=== PATIENT | male | born 1940 | race Caucasian/White ===

== ENCOUNTER → 2016-11-15 | Outpatient (CLI) | payer MEDICARE, OTHER | LOC: RAD 06:37 | PROVIDERS: ATTEND Nurse Practitioner | DX: Z12.2 Encounter for screening for malignant neoplasm of respiratory organs (principal); J44.9 Chronic obstructive pulmonary disease, unspecified; Z87.891 Personal history of nicotine dependence; R03.0 Elevated blood-pressure reading, without diagnosis of hypertension; R06.02 Shortness of breath; R06.09 Other forms of dyspnea | CPT/HCPCS: G0297 ==

== ENCOUNTER → 2017-12-10 | Outpatient (CLI) | payer MEDICARE, OTHER ==
--- NOTE | 2017-12-12 07:55 | XCELERA REPORT ---
[address] [address] Lower Extremity Venous Evaluation Name: JANAK RODRIGUEZ Age: 77 yrs Gender: Male : 1940 Patient Status: Outpatient Patient Location: Study Date: 12/10/2017 01:26 PM Procedure: Color flow and duplex imaging bilaterally of the veins of the lower extremities as well as the Common Femoral veins. Reason For Study: BILATERAL LEG PAIN Ordering Physician: FAY GILES Performed By: Sulema Mary Right Sided Venous Evaluation Normal vessel filling wall to wall, compression and augmentation as well as Colour flow down to the infrageniculate veins. Left Sided Venous Evaluation Normal vessel filling wall to wall, compression and augmentation as well as Colour flow down to the infrageniculate veins. Interpretation Summary No duplex evidence of DVT or obstruction in the bilateral lower extremities. : FAY GILES > Jaiden Parra
--- NOTE | 2017-12-12 07:58 | XCELERA REPORT ---
[address] [address] Tel: [phone] Fax: [phone] Lower Extremity Arterial Evaluation Name: JANAK RODRIGUEZ Age: 77 yrs Gender: Male : 1940 Patient Status: Outpatient Patient Location: [facility] Study Date: 12/10/2017 02:10 PM Procedure: Ankle brachial indicies performed. Reason For Study: PVD Ordering Physician: FAY GILES Performed By: Sulema Mary Right Side Arterial Evaluation ROBIN :0.87. Multiphasic waveform. Left Side Arterial Evaluation ROBIN :0.67. Multiphasic waveform. Interpretation Summary Normal ROBIN on right, moderate disease predicted on left. Further elucidation might be provided on duplex imaging, or other studies, if needed. : FAY GILES > Jaiden Parra
== END ==
LOC: SP 12:28
PROVIDERS: ATTEND Nurse Practitioner
DX: I73.9 Peripheral vascular disease, unspecified (principal); R20.8 Other disturbances of skin sensation; M79.604 Pain in right leg; M79.605 Pain in left leg; M79.671 Pain in right foot; M79.672 Pain in left foot
CPT/HCPCS: 93922; 93970

== ENCOUNTER 2017-12-26 10:16 | Emergency (ER) | payer MEDICARE, OTHER ==
[2017-12-26] MEDS ORDERED: ASPIRIN 81 MG TABLET, CHEWABLE PO ONE (10:28)
[2017-12-26] MEDS ORDERED: ADENOSINE INJ/PF 6 MG/2 ML SDV IV ONE ×2 (10:42)
[2017-12-26 10:47] LABS: ABSOLUTE BASOPHILS # (AUTO) 0.1 10^3/uL (0.0-0.2); ABSOLUTE EOSINOPHILS # (AUTO) 0.2 10^3/uL (0.0-0.6); ABSOLUTE LYMPHOCYTES (AUTO) 1.8 10^3/uL (0.5-4.7); ABSOLUTE MONOCYTES (AUTO) 0.4 10^3/uL (0.1-1.4); ABSOLUTE NEUT (AUTO) 3.8 10^3/uL (1.7-8.2); BASOPHILS % (AUTO) 0.8 % (0-2); EOSINOPHILS % (AUTO) 3.5 % (0-6); HEMATOCRIT 46.6 % (37.9-51.0); HEMOGLOBIN 15.8 g/dL (13.5-17.0); MEAN CORPUSCULAR HEMOGLOBIN 30.9 pg (27.0-33.4); MEAN CORPUSCULAR HGB CONC 33.9 g/dL (32.0-36.0); MEAN CORPUSCULAR VOLUME 91 fl (80-97); MONOCYTES % (AUTO) 7.1 % (3-13); PLATELET COUNT 108 10^3/uL (150-450); RED CELL DISTRIBUTION WIDTH 13.7 % (11.5-14.0); SEGMENTED NEUTROPHILS % (AUTO) 60.6 % (42-78); TOTAL CELLS COUNTED % (AUTO) 100 %; WHITE BLOOD COUNT 6.3 10^3/uL (4.0-10.5)
[2017-12-26] MEDS ORDERED: NORMAL SALINE 1000 ML 1,000 ML IV ONE (10:54)
[2017-12-26 11:04] LABS: ALANINE AMINOTRANSFERASE 34 U/L (21-72); ALBUMIN 4.1 g/dL (3.5-5.0); ALKALINE PHOSPHATASE 45 U/L (38-126); ANION GAP 11 (5-19); ASPARTATE AMINO TRANSFERASE 23 U/L (17-59); BILIRUBIN,DIRECT 0.3 mg/dL (0.0-0.4); BILIRUBIN,TOTAL 0.4 mg/dL (0.2-1.3); BLOOD UREA NITROGEN 12 mg/dL (7-20); CALCIUM 9.5 mg/dL (8.4-10.2); CARBON DIOXIDE 27 mmol/L (22-30); CHLORIDE 110 mmol/L (98-107); CREATINE KINASE 56 U/L (55-170); GLUCOSE 97 mg/dL (75-110); POTASSIUM 4.6 mmol/L (3.6-5.0); SODIUM 147.6 mmol/L (137-145); TOTAL PROTEIN 6.3 g/dL (6.3-8.2)
[2017-12-26 11:15] LABS: CREATINE KINASE MB 1.48 ng/mL (<4.55); TROPONIN I < 0.012 ng/mL
[2017-12-26 11:21] LABS: FREE T4 (FREE THYROXINE) 1.01 ng/dL (0.78-2.19)
--- NOTE | 2017-12-26 11:29 | RADIOLOGY REPORT (SQ) ---
EXAM DESCRIPTION: CHEST SINGLE VIEW COMPLETED DATE/TIME: 12/26/2017 11:08 am REASON FOR STUDY: sob COMPARISON: April 2013 EXAM PARAMETERS: NUMBER OF VIEWS: One view. TECHNIQUE: Single frontal radiographic view of the chest acquired. RADIATION DOSE: NA LIMITATIONS: None. FINDINGS: LUNGS AND PLEURA: No opacities, masses or pneumothorax. No pleural effusion. MEDIASTINUM AND HILAR STRUCTURES: No masses. Contour normal. HEART AND VASCULAR STRUCTURES: Heart normal in size. Normal vasculature. BONES: No acute findings. HARDWARE: None in the chest. OTHER: No other significant finding. IMPRESSION: NO ACUTE RADIOGRAPHIC FINDING IN THE CHEST. TECHNICAL DOCUMENTATION: JOB ID: [id number] [employer]- All Rights Reserved Reading location - IP/workstation name: [email or web address]
[2017-12-26 11:34] LABS: THYROID STIMULATING HORMONE 1.08 uIU/mL (0.47-4.68)
--- NOTE | 2017-12-26 12:41 | RADIOLOGY REPORT (SQ) ---
EXAM DESCRIPTION: CTA CHEST COMPLETED DATE/TIME: 12/26/2017 12:13 pm REASON FOR STUDY: hx of AAA tachy hypotension COMPARISON: None. TECHNIQUE: CT scan of the chest performed using helical scanning technique with dynamic intravenous contrast injection. Images reviewed with lung, soft tissue and bone windows. Reconstructed coronal and sagittal MPR images reviewed. Additional 3 dimensional post-processing performed to develop Maximal Intensity Projection images (NM P). All images stored on PACS. All CT scanners at this facility use dose modulation, iterative reconstruction, and/or weight based d osing when appropriate to reduce radiation dose to as low as reasonably achievable (ALARA). [facility]: Dose Right [facility]: CareDose [facility]: Dose Right [facility]: Teradose 4D [facility]: [employer] CONTRAST TYPE AND DOSE: 100 mL Isovue 370 Contrast bolus optimized for the pulmonary arteries. Not diagnostic for the aorta. RENAL FUNCTION: Creatinine 0.88 RADIATION DOSE: . LIMITATIONS: None. FINDINGS: LUNGS AND PLEURA: No masses, infiltrates, pneumothorax. No pleural effusions, calcificati ons. Emphysematous changes are identified. AORTA AND GREAT VESSELS: No aneurysm. No dissection. There is diffuse ectasia of the thoracic aorta . HEART: No pericardial effusion. No significant coronary artery calcifications. PULMONARY ARTERIES: No emboli visualized in the main pulmonary arteries or the segmental branches. HILAR AND MEDIASTINAL STRUCTURES: No identified masses or abnormal nodes. HARDWARE: None in the chest. UPPER ABDOMEN: See results under abdominal CT scan THYROID AND OTHER SOFT TISSUES: No masses. No adenopathy. BONES: No acute or significant finding. 3D MIPS: Confirm above findings. OTHER: No other significant finding. IMPRESSION: No evidence for a thoracic aortic aneurysm or dissection. There is diffuse ectasia of t he thoracic aorta. No acute consolidations or pleural effusions are identified. Other findings as n oted above. COMMENT: Quality ID # [id number]: Final reports with documentation of one or more dose reduction techniques (e.g., Automated exposure control, adjustment of the mA and/or kV according to patient size, use of iterative reconstruction technique) TECHNICAL DOCUMENTATION: JOB ID: [id number] [employer]- All Rights Reserved Reading location - IP/workstation name: [email or web address]
--- NOTE | 2017-12-26 12:51 | RADIOLOGY REPORT (SQ) ---
EXAM DESCRIPTION: CTA ABDOMEN/PELVIS W WO COMPLETED DATE/TIME: 12/26/2017 12:13 pm REASON FOR STUDY: hx of AAA tachy hypotension COMPARISON: None. TECHNIQUE: CT scan of the abdominal aorta extending to the iliac bifurcation performed with intraven ous contrast using helical scanning technique with dynamic intravenous contrast injection. Images rev iewed with lung, soft tissue, and bone windows. Reconstructed coronal and sagittal MPR images reviewe d. All images stored on PACS. Advanced 3D imaging as volume rendering, MIPS, SSD performed? yes All CT scanners at this facility use dose modulation, iterative reconstruction, and/or weight based d osing when appropriate to reduce radiation dose to as low as reasonably achievable (ALARA). [facility]: Dose Right [facility]: CareDose [facility]: Dose Right [facility]: Teradose 4D [facility]: [employer] CONTRAST TYPE AND DOSE: contrast/concentration: Isovue 370.00 mg/ml; Total Contrast Delivered: 100.0 ml; Total Saline Delivered: 90.0 ml RENAL FUNCTION: Creatinine 0.88 LIMITATIONS: None. FINDINGS: POST-CONTRAST IMAGING: AORTA AND VESSELS: An infrarenal abdominal aortic aneurysm is identified measuring 3.1 cm in diameter . There is diffuse ectasia of the remaining abdominal aorta with vascular calcifications. A small c omponent of intraluminal clot is identified. 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 There is ectasia of the right common iliac artery. Vascular calci fications are identified at the origin of the superior mesenteric artery and left renal artery. LUNG BASES: See results under chest CT scan LIVER: Normal size. No masses or dilated ducts. Small hepatic cyst is identified. SPLEEN: Normal size. No focal lesions. PANCREAS: No masses. No significant calcifications. No adjacent inflammation or peripancreatic fluid collections. Pancreatic duct not dilated. GALLBLADDER: No identified stones by CT criteria. No inflammatory changes to suggest cholecystitis. ADRENAL GLANDS: A small 1.4 cm in diameter left adrenal mass is identified. RIGHT KIDNEY AND URETER: No mass, calculi or urinary tract obstruction. LEFT KIDNEY AND URETER: No mass, calculi or urinary tract obstruction. RETROPERITONEUM: No retroperitoneal adenopathy, hemorrhage or masses. BOWEL AND PERITONEAL CAVITY: No masses or inflammatory changes. No free fluid or peritoneal masses. APPENDIX: Normal. ABDOMINAL WALL: No masses. Left inguinal hernia is identified containing fat BONY STRUCTURES: Degenerative changes are identified in the lumbar spine. 3-D IMAGING: Confirms the above findings. OTHER: There is prominence of the prostate gland with a prostatic impression on the bladder base P IMPRESSION: A small infrarenal abdominal aortic aneurysm is identified as noted above measuring 3.1 cm in diameters. 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 Small 1.4 cm in diameter left adrenal mass is identified. Other findings as noted above TECHNICAL DOCUMENTATION: JOB ID: [id number] Quality ID # [id number]: Final reports with documentation of one or more dose reduction techniques (e.g., Au tomated exposure control, adjustment of the mA and/or kV according to patient size, use of iterative reconstruction technique) 2010 [employer]- All Rights Reserved Reading location - IP/workstation name: [email or web address]
--- NOTE | 2017-12-26 13:18 | ER Document Report ---
ED General - General Chief Complaint: Arrhythmia Stated Complaint: HEART PROBLEMS Time Seen by Provider: 12/26/17 10:28 TRAVEL OUTSIDE OF THE [place] IN LAST 30 DAYS: No - HPI Patient complains to provider of: Tachycardia Notes: We will there are no like 6 of insulin patient states he was at his PCPs office discussing results of recent CT scan evaluating his abdominal aortic aneurysm and peripheral vascular disease. Patient states became very nervous the examination upon taking vital signs patient was noted to have heart rate of 150 with a blood pressure in the lower 100s. Patient transported to the ER via EMS. Upon my evaluation patient resting company denies any chest pain abdominal pain fever chills nausea vomiting diarrhea denies any history of arrhythmias in the past. Denies any recent travel patient resting comfortably upon my evaluation. - Related Data Allergies/Adverse Reactions: No Known Allergies Allergy (Verified 12/26/17 10:47) Past Medical History - Social History Smoking Status: Current Every Day Smoker Chew tobacco use (# tins/day): No Frequency of alcohol use: None Drug Abuse: None Family History: Reviewed & Not Pertinent Patient has suicidal ideation: No Patient has homicidal ideation: No - Past Medical History Cardiac Medical History: Reports: Hx Hypercholesterolemia Denies: Hx Coronary Artery Disease, Hx Heart Attack, Hx Hypertension Pulmonary Medical History: Denies: Hx Asthma, Hx Bronchitis, Hx COPD, Hx Pneumonia Neurological Medical History: Denies: Hx Cerebrovascular Accident, Hx Seizures Renal/ Medical History: Denies: Hx Peritoneal Dialysis GI Medical History: Denies: Hx Hepatitis, Hx Hiatal Hernia, Hx Ulcer Musculoskeltal Medical History: Denies Hx Arthritis Infectious Medical History: Denies: Hx Hepatitis Past Surgical History: Denies: Hx Open Heart Surgery, Hx Pacemaker Review of Systems - Review of Systems Constitutional: No symptoms reported EENT: No symptoms reported Cardiovascular: Palpitations Respiratory: No symptoms reported Gastrointestinal: No symptoms reported Genitourinary: No symptoms reported Male Genitourinary: No symptoms reported Musculoskeletal: No symptoms reported Skin: No symptoms reported Hematologic/Lymphatic: No symptoms reported Neurological/Psychological: No symptoms reported -: Yes All other systems reviewed and negative Physical Exam - Vital signs Vitals: Temp Resp Pulse Ox 97.9 F 20 97 12/26/17 10:28 12/26/17 10:28 12/26/17 10:28 Interpretation: Normal - General General appearance: Appears well, Alert - HEENT Head: Normocephalic, Atraumatic Eyes: Normal Pupils: PERRL - Respiratory Respiratory status: No respiratory distress Chest status: Nontender Breath sounds: Normal Chest palpation: Normal - Cardiovascular Rhythm: Tachycardia Heart sounds: Normal auscultation Murmur: No - Abdominal Inspection: Normal Distension: No distension Bowel sounds: Normal Tenderness: Nontender Organomegaly: No organomegaly - Back Back: Normal, Nontender - Extremities General upper extremity: Normal inspection, Nontender, Normal color, Normal ROM , Normal temperature General lower extremity: Normal inspection, Nontender, Normal color, Normal ROM , Normal temperature, Normal weight bearing. No: Kaushik's sign - Neurological Neuro grossly intact: Yes Cognition: Normal Orientation: AAOx4 Dimmitt Coma Scale Eye Opening: Spontaneous Dimmitt Coma Scale Verbal: Oriented Benedict Coma Scale Motor: Obeys Commands Dimmitt Coma Scale Total: 15 Speech: Normal Motor strength normal: LUE, RUE, LLE, RLE Sensory: Normal - Psychological Associated symptoms: Normal affect, Normal mood - Skin Skin Temperature: Warm Skin Moisture: Dry Skin Color: Normal Course - Re-evaluation Re-evalutation: 12/26/17 18:46 EKG showed patient to be in SVT. Vagal maneuvers were ineffective and covering the patient. Therefore patient was set up for adenosine patient was given 6 of adenosine converted to normal sinus rhythm. Laboratory studies not show any significant pathology for his SVT. Patient due to his history of aneurysms underwent CTA no pulmonary embolism no signs of dissection or leaking of aneurysm. Patient remained stable while here in ER. Patient was encouraged to avoid any stimulants I do believe patient more likely an SVT because of his anxiety. Patient agrees to follow-up with PCP and also agrees follow-up with cardiology. - Vital Signs Vital signs: Temp Pulse Resp BP Pulse Ox 98.4 F 15 135/70 H 95 12/26/17 13:02 12/26/17 13:02 12/26/17 13:02 12/26/17 13:02 - Laboratory Result Diagrams: 12/26/17 10:37 12/26/17 10:37 Laboratory results interpreted by me: 12/26/17 12/26/17 10:37 10:37 Plt Count 108 L Sodium 147.6 H Chloride 110 H Discharge - Discharge Clinical Impression: SVT (supraventricular tachycardia), Abdominal aneurysm Condition: Good Disposition: HOME, SELF-CARE Instructions: Palpitations (Irregular or Rapid Heartrate) ([facility]), Paroxysmal Supraventricular Tachycardia ([facility]) Additional Instructions: Your presentation today show that you are in a fast cardiac arrhythmia called SVT or supraventricular tachycardia. We did give you a dose of medication to help slow your heart rate down the observation. Here in ER and has not shown any etiology of why you are in the SVT I do believe this may have been anxiety induced. Highly recommend that she follow-up with your primary care physician drink plenty of water and fluids. Please avoid stimulants such as nicotine caffeine. Also recommend follow-up with a business risk analyst approximately 1-2 weeks. Return to ER symptoms worsen. Referrals: FAY GILES NP [Primary Care Provider] - Follow up as needed ELIAS DOVE MD [ACTIVE STAFF] - Follow up as needed
[2017-12-26 13:33] VITALS: BP 135/70
--- NOTE | 2017-12-26 23:35 | EKG REPORT ---
SEVERITY:- BORDERLINE ECG - SINUS RHYTHM PROBABLE LEFT ATRIAL ABNORMALITY : Confirmed by: Matt Karimi 26-Dec-2017 23:34:20
--- NOTE | 2017-12-26 23:36 | EKG REPORT ---
SEVERITY:- ABNORMAL ECG - SINUS TACHYCARDIA VS A FLUTTER WITH 2:1 CONDUCTION LEFT AXIS DEVIATION CONSIDER POSTERIOR INFARCT ST DEPRESSION, PROBABLY RATE RELATED BORDERLINE PROLONGED QT INTERVAL : Confirmed by: Matt Karimi 26-Dec-2017 23:35:43
== END 2017-12-26 13:30 | disposition home or self-care (01) ==
LOC: ER 10:16
DX: I47.1 Supraventricular tachycardia (principal); I71.4 Abdominal aortic aneurysm, without rupture; F17.200 Nicotine dependence, unspecified, uncomplicated; E78.00 Pure hypercholesterolemia, unspecified
CPT/HCPCS: 93005; 99285; 96361; 96374; 36415; 84439; 82553; 82550; 83690; 83735; 84443; 85025; 80053; 84484; 71045; 71275; 74174; 93010; A9270; J7030; J0153